=== PATIENT | male | born 1960 | race Caucasian/White ===

== ENCOUNTER → 2016-06-24 | Outpatient (CLI) | payer BC ==
[2016-06-24 18:11] LABS: CHOLESTEROL/HDL RATIO 3.7
[2016-06-24 18:42] LABS: LYME DISEASE AB IGG NEG (NEG); LYME DISEASE AB IGM NEG (NEG)
== END | disposition home or self-care (01) ==
LOC: C.LABMFLN 11:44
PROVIDERS: ATTEND Family Medicine
DX: Z13.220 Encounter for screening for lipoid disorders (principal); Z13.1 Encounter for screening for diabetes mellitus; W57.XXXA Bitten or stung by nonvenomous insect and other nonvenomous arthropods, initial encounter

== ENCOUNTER → 2017-06-27 | Outpatient (CLI) | payer BC | END | disposition home or self-care (01) | LOC: C.LABMFLN 09:42 | PROVIDERS: ATTEND Family Medicine | DX: Z12.5 Encounter for screening for malignant neoplasm of prostate (principal); Z13.220 Encounter for screening for lipoid disorders; Z13.1 Encounter for screening for diabetes mellitus ==

== ENCOUNTER → 2017-07-14 | Day surgery (SDC) | payer BC ==
[2017-07-13 08:35] VITALS: Ht 177.8 cm; Wt 88.6 kg
--- NOTE | 2017-07-13 11:29 | DIAGNOSTIC IMAGING REPORT ---
CHEST 2 VIEWS ROUTINE CLINICAL HISTORY: PRE OP COMPARISON STUDY: No previous studies for comparison. FINDINGS: The bones soft tissues and hemidiaphragms are normal. The cardiomediastinal silhouette is normal. The lungs are clear. The pulmonary vasculature is normal. IMPRESSION: Negative chest. The above report was generated using voice recognition software. It may contain grammatical, syntax or spelling errors. Electronically signed by: Noel Harrell M.D. 07/13/2017 11:28 AM Dictated Date/Time: 07/13/2017 11:27 AM
[2017-07-13 12:11] LABS: BASO % 0.3 %; BASO ABS # 0.03 K/uL (0-0.2); EOS % 0.7 %; EOS ABS # 0.08 K/uL (0-0.5); HEMATOCRIT 41.5 % (42-52); HEMOGLOBIN 14.2 g/dL (14.0-18.0); IG# 0.02 K/uL (0.00-0.02); LYMPH % 12.3 %; LYMPH ABS # 1.45 K/uL (1.2-3.4); MEAN CELL VOLUME 89.8 fL (80-100); MEAN CORPUSCULAR HEMOGLOBIN 30.7 pg (25-34); MEAN CORPUSCULAR HGB CONC 34.2 g/dl (32-36); MEAN PLATELET VOLUME 10.1 fL (7.4-10.4); MONO % 10.4 %; MONO ABS # 1.22 K/uL (0.11-0.59); NEUT % 76.1 %; NEUT ABS # 8.95 K/uL (1.4-6.5); PLATELET COUNT 185 K/uL (130-400); RED CELL DISTRIBUTION WIDTH CV 12.6 % (11.5-14.5); RED CELL DISTRIBUTION WIDTH SD 41.3 fL (36.4-46.3); WHITE BLOOD COUNT 11.75 K/uL (4.8-10.8)
[2017-07-13 12:46] LABS: CALCIUM 8.6 mg/dl (8.5-10.1); CREATININE 1.02 mg/dl (0.60-1.40)
[~2017-07-14] VITALS: Ht 177.8 cm; Wt 88.6 kg
[~2017-07-14] MED LIST: ATROPINE SULFATE 0.1 MG/ML 5ML SYR IV PRN; CIPROFLOXACIN 400MG / D5W IV SCH; DEXAMETHASONE SOD INJ 4 MG/ML VIAL ONE; EpHEDrine SULFATE 50MG/5ML SYR ONE; EpHEDrine SULFATE INJ 50 MG/ML AMP IV PRN; FENTANYL CITRATE INJ 50 MCG/1 ML 2 ML VIAL ONE; HydrALAZINE HCL 20 MG/ML VIAL ONE; LABETALOL HCL IV 5 MG/ML 20ML IV PRN; LABETALOL HCL IV 5 MG/ML 20ML ONE; LACTATED RINGER'S 1000ML 1,000 ML IV SCH; LIDOCAINE HCL 2% 2 ML VIAL (20MG/ML) ONE; MIDAZOLAM HCL 1 MG/ML 2ML VIAL ONE; NAPR1TAB9 PO; NURSING VERBAL MED ORDER ONE; ONDA4TAB46 PO; ONDANSETRON INJ 2 MG/ML 2 ML VIAL ONE; OXYC-643 PO; OXYCODONE/ACETAMINOPHEN 5-325 TAB PO PRN; PROPOFOL IV EMULSION 10 MG/ML 20 ML VIAL ONE; TAMS0.4C38 PO
--- NOTE | 2017-07-14 13:00 | History & Physical Bridge Note ---
H&P Re-Evaluation Bridge Note: I have examined the patient, reviewed the History & Physical and in the interval since the performance of the History & Physical I have noted the following changes of clinical significance: No changes noted
--- NOTE | 2017-07-14 14:07 | Discharge Instructions ---
Discharge Instructions Date of Service July 14, 2017. Admission Reason for Admission: Right Stone Discharge Discharge Diagnosis / Problem: R upper ureteral stone s/p ESWL Discharge Goals Goal(s): Decrease discomfort, Improve function, Improve disease control, Therapeutic intervention Activity Recommendations Activity Limitations: as noted below Lifting Limitations: no more than 25 pounds, gradually increase as tolerated Exercise/Sports Limitations: rest today, gradually increase as tolerated May Resume Sexual Activity: when tolerated Shower/Bathe: tomorrow Driving or Machine Use: resume 1 day after discharge . Instructions / Follow-Up Instructions / Follow-Up Follow-up in office as scheduled with KUB Xray before visit. Current Hospital Diet Patient's current hospital diet: Discharge Diet Recommended Diet: Regular Diet (good fluid intake) Procedures Procedures Performed: Right upper ureteral extracorporeal shockwave lithotripsy. Pending Studies Studies pending at discharge: yes List of pending studies: KUB Xray before office visit Laboratory Results Lipid Panel Test 06/27/17 09:49 Range/Units Triglycerides Level 53 0-150 mg/dl Cholesterol Level 139 0-200 mg/dl HDL Cholesterol 42 mg/dl Cholesterol/HDL Ratio 3.3 LDL Cholesterol, Calculated 86 mg/dl Medical Emergencies . Who to Call and When: Medical Emergencies: If at any time you feel your situation is an emergency, please call 911 immediately. . Non-Emergent Contact Non-Emergency issues call your: Urologist Call Non-Emergent contact if: you have a fever, temperature is above 101, your pain is not controlled, your pain is worsening, your pain is unusual for you, your pain is concerning you, you have any medication questions . . "Provider Documentation" section prepared by Prince Trejo. .
--- NOTE | 2017-07-14 14:52 | [facility] Post Operative Brief Note ---
Immediate Operative Summary Operative Date July 14, 2017. Pre-Operative Diagnosis Right Upper Ureteral Calculi Post-Operative Diagnosis Same as pre-op Procedure(s) Performed Right Extracorporeal Shock Wave Lithotripsy - Renal Surgeon Dr Mark Trejo Director Of Health Education Surgeon(s) None Estimated Blood Loss 0 mL Findings Consistent with Post-Op Diagnosis Specimens None Drains None Anesthesia Type General Complication(s) none Disposition Accompanied Pt To Recover: no Disposition: Recovery Room / PACU
[2017-07-14] MEDS: FENTANYL CITRATE INJ 50 MCG/1 ML 2 ML VIAL IV PRN ×5 (15:13→16:02)
--- NOTE | 2017-07-14 15:19 | OPERATIVE REPORT ---
DATE OF OPERATION: 07/14/2017 PREOPERATIVE DIAGNOSIS: Right upper ureteral stone. POSTOPERATIVE DIAGNOSIS: Right upper ureteral stone. PROCEDURE: Right upper ureteral extracorporeal shock wave lithotripsy. SURGEON: Dr. Prince Trejo INDUSTRIAL TECHNOLOGY TEACHER: None. ANESTHESIA: General anesthesia with laryngeal mask. COMPLICATIONS: None. FINDINGS: Excellent stone fragmentation on fluoroscopic imaging. DETAILS OF PROCEDURE: The patient was brought to the litho suite. He was correctly identified and the stone was visualized on his most recent x-rays. After the correct time out was performed the patient was positioned over the therapy head. An adequate level of anesthesia was administered. The extracorporeal shockwave lithotripsy treatment was then commenced. Please see the [facility] sheet for complete treatment summary. After completion of the procedure the patient was taken to the recovery room in stable condition. I attest to the content of the Intraoperative Record and any orders documented therein. Any exception s are noted below.
[2017-07-14] MEDS: OXYCODONE/ACETAMINOPHEN 5-325 TAB PO PRN ×2 (16:24→16:42)
[2017-07-14 16:25] VITALS: TEMP 36.5
--- NOTE | 2017-07-14 16:51 | Anesthesia Progress Nt - [facility] ---
Anesthesia Post Op Note Date & Time July 14, 2017 at 16:50 Vital Signs Vital Signs Past 12 Hours Date Time Temp Pulse Resp B/P (MAP) Pulse Ox O2 Delivery O2 Flow Rate FiO2 07/14/17 16:34 62 185/102 (129) 07/14/17 16:25 36.5 62 18 201/97 (131) 94 Room Air 07/14/17 16:16 36.5 66 18 183/110 97 Room Air 07/14/17 16:15 183/110 07/14/17 16:13 66 12 97 07/14/17 16:13 65 12 07/14/17 16:11 186/107 07/14/17 16:08 57 14 07/14/17 16:08 57 14 98 07/14/17 16:07 64 21 07/14/17 16:07 65 21 98 07/14/17 16:05 198/109 07/14/17 16:02 62 12 07/14/17 16:02 62 12 96 07/14/17 16:01 180/106 07/14/17 15:57 61 13 07/14/17 15:57 59 13 97 07/14/17 15:55 197/109 07/14/17 15:52 55 14 95 07/14/17 15:52 54 14 07/14/17 15:51 185/106 07/14/17 15:47 58 16 96 07/14/17 15:47 58 16 07/14/17 15:46 175/108 07/14/17 15:44 55 10 07/14/17 15:44 54 10 95 07/14/17 15:40 188/108 07/14/17 15:39 51 15 94 07/14/17 15:39 52 15 07/14/17 15:36 188/110 07/14/17 15:34 58 12 07/14/17 15:34 58 12 98 07/14/17 15:33 187/114 07/14/17 15:31 199/124 07/14/17 15:29 59 18 97 07/14/17 15:29 59 18 07/14/17 15:27 183/112 07/14/17 15:26 195/112 07/14/17 15:24 55 12 97 07/14/17 15:24 55 12 07/14/17 15:21 179/111 07/14/17 15:19 53 4 98 07/14/17 15:19 52 4 07/14/17 15:18 59 19 93 07/14/17 15:18 57 19 07/14/17 15:16 192/108 07/14/17 15:13 61 14 07/14/17 15:13 58 14 98 07/14/17 15:12 187/112 07/14/17 15:08 57 10 100 07/14/17 15:08 57 10 07/14/17 15:05 175/100 07/14/17 15:03 70 17 99 07/14/17 15:03 68 17 07/14/17 15:02 74 13 100 07/14/17 15:02 74 13 07/14/17 15:00 158/100 07/14/17 14:57 155/99 07/14/17 14:57 36.4 60 16 155/99 99 Mask 6 07/14/17 12:32 36.8 54 16 157/90 (112) 98 Room Air Notes Mental Status: alert / awake / arousable, participated in evaluation Pt Amnestic to Procedure: Yes Nausea / Vomiting: adequately controlled Pain: adequately controlled Airway Patency, RR, SpO2: stable & adequate BP & HR: stable & adequate Hydration State: stable & adequate Anesthetic Complications: no major complications apparent
[2017-07-14 16:55] VITALS: BP 184/103; PULSE 59; O2SAT 95
== END | disposition home or self-care (01) ==
LOC: X.SURG 12:00
PROVIDERS: ATTEND Urology
DX: N20.1 Calculus of ureter (principal); C18.9 Malignant neoplasm of colon, unspecified; I10 Essential (primary) hypertension; Z87.442 Personal history of urinary calculi; Z82.49 Family history of ischemic heart disease and other diseases of the circulatory system; Z83.3 Family history of diabetes mellitus; Z85.038 Personal history of other malignant neoplasm of large intestine; Z87.891 Personal history of nicotine dependence

== ENCOUNTER 2017-07-16 06:14 | Emergency (ER) | payer BC ==
[~2017-07-16] VITALS: Ht 177.8 cm; Wt 87.0 kg
[~2017-07-16 06:14] MED LIST changes: -ATROPINE SULFATE 0.1 MG/ML 5ML SYR IV PRN; -CIPROFLOXACIN 400MG / D5W IV SCH; -DEXAMETHASONE SOD INJ 4 MG/ML VIAL ONE; -EpHEDrine SULFATE 50MG/5ML SYR ONE; -EpHEDrine SULFATE INJ 50 MG/ML AMP IV PRN; -FENTANYL CITRATE INJ 50 MCG/1 ML 2 ML VIAL ONE; -HydrALAZINE HCL 20 MG/ML VIAL ONE; -LABETALOL HCL IV 5 MG/ML 20ML IV PRN; -LABETALOL HCL IV 5 MG/ML 20ML ONE; -LACTATED RINGER'S 1000ML 1,000 ML IV SCH; -LIDOCAINE HCL 2% 2 ML VIAL (20MG/ML) ONE; -MIDAZOLAM HCL 1 MG/ML 2ML VIAL ONE; -NURSING VERBAL MED ORDER ONE; -ONDANSETRON INJ 2 MG/ML 2 ML VIAL ONE; -OXYCODONE/ACETAMINOPHEN 5-325 TAB PO PRN; -PROPOFOL IV EMULSION 10 MG/ML 20 ML VIAL ONE
[2017-07-16 06:17] VITALS: TEMP 36.6; Ht 177.8 cm; Wt 87.0 kg
[2017-07-16] MEDS ORDERED: SODIUM CHLORIDE 0.9% 1000ML 1,000 ML IV STA (06:36)
[2017-07-16] MEDS ORDERED: KETOROLAC TROMETHAMINE 30 MG/ML VIAL IV STA (06:36)
[2017-07-16] MEDS ORDERED: ONDANSETRON INJ 2 MG/ML 2 ML VIAL IV STA (06:36)
[2017-07-16] MEDS ORDERED: MoRPHine SULFATE 10 MG/ML CARP/VIAL IV PRN (06:45)
[2017-07-16 07:11] LABS: BASO % 0.1 %; BASO ABS # 0.01 K/uL (0-0.2); EOS % 0.1 %; EOS ABS # 0.02 K/uL (0-0.5); HEMATOCRIT 43.1 % (42-52); HEMOGLOBIN 15.1 g/dL (14.0-18.0); IG# 0.08 K/uL (0.00-0.02); LYMPH % 7.7 %; LYMPH ABS # 1.36 K/uL (1.2-3.4); MEAN CELL VOLUME 87.8 fL (80-100); MEAN CORPUSCULAR HEMOGLOBIN 30.8 pg (25-34); MEAN PLATELET VOLUME 10.1 fL (7.4-10.4); MONO % 10.1 %; NEUT % 81.5 %; PLATELET COUNT 193 K/uL (130-400); RED CELL DISTRIBUTION WIDTH CV 12.2 % (11.5-14.5); RED CELL DISTRIBUTION WIDTH SD 38.9 fL (36.4-46.3); WHITE BLOOD COUNT 17.77 K/uL (4.8-10.8)
[2017-07-16 07:29] LABS: ALBUMIN 4.1 gm/dl (3.4-5.0); CALCIUM 9.4 mg/dl (8.5-10.1); CREATININE 1.66 mg/dl (0.60-1.40); POTASSIUM 3.9 mmol/L (3.5-5.1)
[2017-07-16 07:32] LABS: TOTAL PROTEIN 7.9 gm/dl (6.4-8.2)
--- NOTE | 2017-07-16 07:35 | DIAGNOSTIC IMAGING REPORT ---
ABDOMEN AND PELVIS CT WITHOUT CONTRAST CT DOSE: 434.49 mGy.cm HISTORY: Right flank pain TECHNIQUE: Multiaxial CT images of the abdomen and pelvis were performed without the use of intravenous and oral contrast according to the standard department stone protocol. A dose lowering technique was utilized adhering to the principles of ALARA. COMPARISON STUDY: Outside hospital abdomen and pelvis CT 07/22/2017. FINDINGS: Stable 11 mm hypodense lesion within the right hepatic lobe. The spleen, adrenal glands, and pancreas are unremarkable. There are few small gallstones. Small fat-containing umbilical hernia. There are few punctate stones within the bladder. No retroperitoneal lymphadenopathy. There is a 5 mm stone within the left kidney, unchanged. There is a 3 mm stone within the right kidney, unchanged. Mild right perinephric edema is again noted. There is a 5 mm stone within the proximal right ureter on image 43. This is unchanged in position but is slightly decreased in size. Mild right hydronephrosis. A few colonic diverticula. No bowel wall thickening or obstruction. The appendix appears surgically absent. IMPRESSION: 1. A 5 mm obstructing stone within the proximal right ureter resulting in mild right hydronephrosis. This is unchanged in position but is slightly decreased in size compared to the prior study. 2. There are few punctate stones within the bladder. 3. Bilateral nephrolithiasis, unchanged. 4. Additional findings as described above. Electronically signed by: Tonio Du M.D. 07/16/2017 7:34 AM Dictated Date/Time: 07/16/2017 7:30 AM
--- NOTE | 2017-07-16 08:24 | EMERGENCY ROOM VISIT NOTE ---
History Report prepared by Matt: Geoffrey Avalos Under the Supervision of: Dr. Chuck Andujar D.O. First contact with patient: 06:33 Chief Complaint: KIDNEY STONE Stated Complaint: KIDNEY STONE History of Present Illness The patient is a 56 year old male with a history of a lithotripsy who presents to the Emergency Room with complaints of worsening right-sided flank pain that started around 7 hours ago. He states that he had a lithotripsy 2 days ago for a 6 mm kidney stone that started 5 days ago. He says that he was seen at the [place] ED for the stone. He states that the stone was in the tube. The patient says that there was not a stent placed. He states that starting last night, he has had right-sided flank pain that worsened throughout the night. He notes that the pain is constant. He took a Percocet around 2 hours ago. Source of History: patient, spouse/significant other Onset: Around 7 hours ago Position: other (right flank) Symptom Intensity: had to take Percocet 2 hours ago Quality: other (pain) Timing: worsening Note: No other associated symptoms noted. Review of Systems See HPI for pertinent positives & negatives. A total of 10 systems reviewed and were otherwise negative. Past Medical & Surgical Medical Problems: (1) Colon cancer (2) Kidney stones Surgical Problems: (1) History of lithotripsy Family History No pertinent family history Social History Smoking Status: Never Smoker Marital Status: Housing Status: lives with family Occupation Status: employed Current/Historical Medications Scheduled Tamsulosin Hcl (Flomax), 0.4 MG PO QAM Scheduled PRN Naproxen (Aleve), 220 MG PO DIRECTED PRN for Pain Ondansetron Hcl (Zofran), 4 MG PO Q6H PRN for Nausea Oxycodone/Acetaminophen 5MG/325MG (Oxycodone/Acetaminophen 5MG/325MG), 1 TABLET PO Q4H PRN for Pain Allergies Coded Allergies: NO KNOWN DRUG ALLERGIES (Verified Allergy, Unknown, ., 07/16/17) Physical Exam Vital Signs Date Time Temp Pulse Resp B/P (MAP) Pulse Ox O2 Delivery O2 Flow Rate FiO2 07/16/17 07:45 63 16 143/82 92 Room Air 07/16/17 06:17 36.6 102 20 191/96 98 Room Air Physical Exam CONSTITUTIONAL/VITAL SIGNS: Reviewed / noted above. GENERAL: Uncomfortable-appearing. Non-toxic in appearance. INTEGUMENTARY: Warm, dry, and [place]. HEAD: Normocephalic. EYES: without scleral icterus or trauma. ENT/OROPHARYNX: clear and moist. LYMPHADENOPATHY/NECK: Is supple without lymphadenopathy or meningismus. RESPIRATORY: Lungs clear and equal. CARDIOVASCULAR: Regular rate and rhythm. GI/ABDOMEN: Soft and nontender. No organomegaly or pulsatile mass. No rebound or guarding. Normal bowel sounds. EXTREMITIES: Warm and well perfused. BACK: Right CVA tenderness. NEUROLOGICAL: Intact without focal deficits. PSYCHIATRIC: normal affect. MUSCULOSKELETAL: Normally developed with good muscle tone. Medical Decision & Procedures ER Provider Diagnostic Interpretation: CT results as stated below per my review and radiologist interpretation: ABDOMEN AND PELVIS CT WITHOUT CONTRAST CT DOSE: 434.49 mGy.cm HISTORY: Right flank pain TECHNIQUE: Multiaxial CT images of the abdomen and pelvis were performed without the use of intravenous and oral contrast according to the standard department stone protocol. A dose lowering technique was utilized adhering to the principles of ALARA. COMPARISON STUDY: Outside hospital abdomen and pelvis CT 07/22/2017. FINDINGS: Stable 11 mm hypodense lesion within the right hepatic lobe. The spleen, adrenal glands, and pancreas are unremarkable. There are few small gallstones. Small fat-containing umbilical hernia. There are few punctate stones within the bladder. No retroperitoneal lymphadenopathy. There is a 5 mm stone within the left kidney, unchanged. There is a 3 mm stone within the right kidney, unchanged. Mild right perinephric edema is again noted. There is a 5 mm stone within the proximal right ureter on image 43. This is unchanged in position but is slightly decreased in size. Mild right hydronephrosis. A few colonic diverticula. No bowel wall thickening or obstruction. The appendix appears surgically absent. IMPRESSION: 1. A 5 mm obstructing stone within the proximal right ureter resulting in mild right hydronephrosis. This is unchanged in position but is slightly decreased in size compared to the prior study. 2. There are few punctate stones within the bladder. 3. Bilateral nephrolithiasis, unchanged. 4. Additional findings as described above. Electronically signed by: Tonio Du M.D. 07/16/2017 7:34 AM Dictated Date/Time: 07/16/2017 7:30 AM Laboratory Results 07/16/17 06:55 Red Blood Count 4.91, Mean Corpuscular Volume 87.8, Mean Corpuscular Hemoglobin 30.8, Mean Corpuscular Hemoglobin Concent 35.0, Mean Platelet Volume 10.1, Neutrophils (%) (Auto) 81.5, Lymphocytes (%) (Auto) 7.7, Monocytes (%) (Auto) 10.1, Eosinophils (%) (Auto) 0.1, Basophils (%) (Auto) 0.1, Neutrophils # (Auto ) 14.50, Lymphocytes # (Auto) 1.36, Monocytes # (Auto) 1.80, Eosinophils # (Auto ) 0.02, Basophils # (Auto) 0.01 07/16/17 06:55 Test 07/16/17 06:55 07/16/17 07:00 White Blood Count 17.77 K/uL (4.8-10.8) Red Blood Count 4.91 M/uL (4.7-6.1) Hemoglobin 15.1 g/dL (14.0-18.0) Hematocrit 43.1 % (42-52) Mean Corpuscular Volume 87.8 fL (80-100) Mean Corpuscular Hemoglobin 30.8 pg (25-34) Mean Corpuscular Hemoglobin Concent 35.0 g/dl (32-36) Platelet Count 193 K/uL (130-400) Mean Platelet Volume 10.1 fL (7.4-10.4) Neutrophils (%) (Auto) 81.5 % Lymphocytes (%) (Auto) 7.7 % Monocytes (%) (Auto) 10.1 % Eosinophils (%) (Auto) 0.1 % Basophils (%) (Auto) 0.1 % Neutrophils # (Auto) 14.50 K/uL (1.4-6.5) Lymphocytes # (Auto) 1.36 K/uL (1.2-3.4) Monocytes # (Auto) 1.80 K/uL (0.11-0.59) Eosinophils # (Auto) 0.02 K/uL (0-0.5) Basophils # (Auto) 0.01 K/uL (0-0.2) RDW Standard Deviation 38.9 fL (36.4-46.3) RDW Coefficient of Variation 12.2 % (11.5-14.5) Immature Granulocyte % (Auto) 0.5 % Immature Granulocyte # (Auto) 0.08 K/uL (0.00-0.02) Anion Gap 8.0 mmol/L (3-11) Est Creatinine Clear Calc Drug Dose 50.1 ml/min Estimated GFR () 51.9 Estimated GFR (Non- 44.8 BUN/Creatinine Ratio 10.4 (10-20) Calcium Level 9.4 mg/dl (8.5-10.1) Total Bilirubin 1.2 mg/dl (0.2-1) Direct Bilirubin 0.3 mg/dl (0-0.2) Aspartate Amino Transf (AST/SGOT) 20 U/L (15-37) Alanine Aminotransferase (ALT/SGPT) 21 U/L (12-78) Alkaline Phosphatase 93 U/L (45-117) Total Protein 7.9 gm/dl (6.4-8.2) Albumin 4.1 gm/dl (3.4-5.0) Urine Color YELLOW Urine Appearance CLOUDY (CLEAR) Urine pH 8.5 (4.5-7.5) Urine Specific [place] 1.019 (1.000-1.030) Urine Protein NEG (NEG) Urine Glucose (UA) NEG (NEG) Urine Ketones 1+ (NEG) Urine Occult Blood 2+ (NEG) Urine Nitrite NEG (NEG) Urine Bilirubin NEG (NEG) Urine Urobilinogen NEG (NEG) Urine Leukocyte Esterase SMALL (NEG) Urine WBC (Auto) 1-5 /hpf (0-5) Urine RBC (Auto) 10-30 /hpf (0-4) Urine Hyaline Casts (Auto) 1-5 /lpf (0-5) Urine Epithelial Cells (Auto) 5-10 /lpf (0-5) Urine Bacteria (Auto) NEG (NEG) Laboratory results as stated above per my review. Medications Administered Medications (Trade) Dose Ordered Sig/Doris Route Start Time Stop Time Status Last Admin Dose Admin Sodium Chloride 1,000 ml @ 999 mls/hr Q1H1M STAT IV 07/16/17 06:36 07/16/17 07:36 DC 07/16/17 06:36 999 MLS/HR Ondansetron HCl (Zofran Inj) 4 mg NOW STAT IV 07/16/17 06:36 07/16/17 06:37 DC 07/16/17 07:08 4 MG Ketorolac Tromethamine (Toradol Inj) 30 mg NOW STAT IV 07/16/17 06:36 07/16/17 06:37 DC 07/16/17 07:09 30 MG Morphine Sulfate (MoRPHine SULFATE INJ) 6 mg Q15M PRN IV 07/16/17 06:45 07/30/17 06:44 07/16/17 07:07 6 MG ED Course 0636: Toradol Inj 30 mg IV, Zofran Inj 4 mg IV, NSS 1000 ml @ 999 mls/hr IV. 0639: Previous medical records were reviewed. The patient was evaluated in room A9B. A complete history and physical examination was performed. 0645: Morphine Sulfate Inj 6 mg IV PRN. Medical Decision Differential diagnosis: Etiologies such as renal colic, appendicitis, diverticulitis, mesenteric ischemia, aortic pathology, infections, inflammatory bowel disease, PUD, biliary pathology, UTI, as well as others were entertained. This is a 56-year-old male who presents to the ED with a chief complaint of right flank pain. The patient states that his symptoms started around 11 PM last night. He states that he took Percocet around 4:30 AM and this did not seem to help. The patient was diagnosed with a 6 mm right proximal ureteral stone last Monday. He saw Dr. Trejo for lithotripsy on Monday. The patient' s initial blood pressure was elevated likely due to pain. He was in moderate discomfort when he was evaluated. He has right CVA tenderness. A CT scan reveals a 5 mm proximal right ureteral stone that is not changed in position compared to the previous CT scan although the size is diminished by about 1 mm. There also noted to be several small fragments of stone in the bladder. The urine reveals blood and ketones. The white blood cell count was 17.7 and his metabolic panel was unremarkable. The patient was treated with IV fluids, IV Zofran, IV Toradol and IV morphine. He was more comfortable with the time of disposition. He was told the results of the test. He was told to call Dr. Trejo's office on Monday for reevaluation. The patient does have Flomax and Percocet at home. He is also taking Naprosyn and has a urine strainer. Medication Reconcilliation Current Medication List: was personally reviewed by me Blood Pressure Screening Patient's blood pressure: Elevated blood pressure Blood pressure disposition: Elevated BP felt to be situational Impression Primary Impression: Renal colic Scribe Attestation The scribe's documentation has been prepared under my direction and personally reviewed by me in its entirety. I confirm that the note above accurately reflects all work, treatment, procedures, and medical decision making performed by me. Departure Information Dispostion Home / Self-Care Referrals Braden Sheehan M.D. (PCP) Patient Instructions My [facility] Additional Instructions Your CT scan shows that the stone that was previously 6 mm is now 5 mm. It is in the same position it was previously. There were several small fragments of stone in your bladder. These likely caused your pain today. Continue taking the medications you are currently on for your kidney stone. Call Dr. Trejo's office on Monday for follow-up. Let them know that you were here.
[2017-07-16 09:05] VITALS: BP 143/96; PULSE 69; O2SAT 94
== END 2017-07-16 09:07 | disposition home or self-care (01) ==
LOC: C.EDB 06:16 → C.EDA 09:07
DX: N23 Unspecified renal colic (principal); Z85.038 Personal history of other malignant neoplasm of large intestine; Z87.442 Personal history of urinary calculi; Z98.890 Other specified postprocedural states

== ENCOUNTER → 2017-07-19 | Outpatient (CLI) | payer BC ==
--- NOTE | 2017-07-19 10:21 | DIAGNOSTIC IMAGING REPORT ---
[facility] CLINICAL HISTORY: Nephrolithiasis. FINDINGS: 2 AP supine abdominal radiographs are correlated with abdominal CT dated 07/16/2017. There is a nonobstructed abdominal bowel gas pattern. There is a 7 mm nonobstructing calculi projecting over the left kidney. A 4 mm nonobstructing catheter is projectional the right kidney. A 5 mm calcification projects along the course of the distal right ureter in the pelvis and may represent a distal ureteral stone. Numerous pelvic phleboliths are observed. The bony structures appear intact. IMPRESSION: 1. A 5 mm calcification projects along the course of the distal right ureter. This could represent a phlebolith or a distal ureteral calculus. 2. Nonobstructing calculi project over both kidneys. Electronically signed by: Braden Sandhu M.D. 07/19/2017 10:20 AM Dictated Date/Time: 07/19/2017 10:17 AM
== END | disposition home or self-care (01) ==
LOC: C.RAD 09:45
PROVIDERS: ATTEND Urology
DX: N20.0 Calculus of kidney (principal); N28.89 Other specified disorders of kidney and ureter